=== PATIENT | male | born 1960 | race Caucasian/White ===

== ENCOUNTER 2021-12-27 06:56 | Day surgery (SDC) | payer OTHER ==
[~2021-12-27] VITALS: Ht 167.6 cm; Wt 77.1 kg
[2021-12-27] MEDS ORDERED: diphenhydrAMINE 50 MG/ML VIAL ONE (09:00)
[2021-12-27] MEDS ORDERED: fentaNYL citrate 0.05 MG/ML VIAL ONE (09:00)
[2021-12-27] MEDS ORDERED: MIDAZOLAM 2 MG/2 ML VIAL ONE (09:00)
[2021-12-27] MEDS ORDERED: LIDOCAINE 2% 100 MG/5 ML UJET TP ONE (09:00)
[2021-12-27] MEDS ORDERED: diphenhydrAMINE 50 MG/ML VIAL IVP ONE (13:00)
[2021-12-27] MEDS ORDERED: MIDAZOLAM 2 MG/2 ML VIAL IVP ONE (13:00)
[2021-12-27] MEDS ORDERED: fentaNYL citrate 0.05 MG/ML VIAL IVP ONE (13:00)
== END 2021-12-27 10:48 | disposition home or self-care (01) ==
LOC: MDS 06:56 → MMU 07:07 → MDS 10:48
PROVIDERS: ATTEND Internal Medicine Gastroenterology
DX: Z12.11 Encounter for screening for malignant neoplasm of colon (principal); D12.2 Benign neoplasm of ascending colon; K62.5 Hemorrhage of anus and rectum; Z86.010 Personal history of colon polyps; Z79.899 Other long term (current) drug therapy; Z20.822 Contact with and (suspected) exposure to COVID-19
CPT/HCPCS: 88305; J1200; J2250; J3010